=== PATIENT | female | born 1995 | race Asian ===

== ENCOUNTER 2017-05-19 10:20 | Emergency (ER) | payer OTHER ==
[2017-05-19 10:28] VITALS: BP 117/60; PULSE 94; TEMP 98.7; BMI 28.3
--- NOTE | 2017-05-19 10:47 | PDOC ---
History of Present Illness - General Chief Complaint: Cold Symptoms Stated Complaint: COUGH Time Seen by Provider: 05/19/17 10:42 History Source: Patient Exam Limitations: No Limitations - History of Present Illness Initial Comments: 05/19/17 11:30 Mother here with small child who is ill with an upper respiratory infection. States child became sick and she became ill yesterday. Denies fever, purulent drainage from nose, has a moist cough, has used Tylenol for fever and pain relief. Timing/Duration: reports: getting worse, yesterday Severity: reports: moderate Associated Symptoms: reports: denies symptoms, earache (congestion), fever/ chills, nasal congestion, nasal drainage. denies: cough, sore throat, wheezing Past History - Travel Traveled outside of the country in the last 30 days: No Close contact w/someone who was outside of country & ill: No - Past Medical History Allergies/Adverse Reactions: Allergies Allergy/AdvReac Type Severity Reaction Status Date / Time No Known Allergies Allergy Verified 05/19/17 10:28 Home Medications: Ambulatory Orders NK [No Known Home Medication] 05/19/17 COPD: No - Suicide/Smoking/Psychosocial Hx Smoking History: Never smoked Information on smoking cessation initiated: No Hx Alcohol Use: No Drug/Substance Use Hx: No Substance Use Type: None Review of Systems - Review of Systems Able to Perform ROS?: Yes Is the patient limited Telugu proficient: Yes Constitutional: Yes: Symptoms Reported, See HPI, Chills, Malaise. No: Fever HEENTM: Yes: Symptoms Reported, See HPI, Nose Congestion Respiratory: Yes: Symptoms reported, See HPI, Cough. No: Wheezing ABD/GI: No: Symptoms Reported All Other Systems: Reviewed and Negative *Physical Exam - Vital Signs Last Vital Signs Temp Pulse Resp BP Pulse Ox 98.7 F 94 H 18 117/60 100 05/19/17 10:26 05/19/17 10:26 05/19/17 10:26 05/19/17 10:05/19/17 10:26 - Physical Exam General Appearance: Yes: Nourished, Appropriately Dressed HEENT: positive: TMs Normal (congested but landmarks easily visualized), Pharynx Normal, Nasal Congestion, Rhinorrhea Neck: positive: Supple. negative: Lymphadenopathy (R), Lymphadenopathy (L) Respiratory/Chest: positive: Lungs Clear, Normal Breath Sounds Gastrointestinal/Abdominal: positive: Soft. negative: Tender Extremity: positive: Normal Inspection, Normal Range of Motion. negative: Normal Capillary Refill Integumentary: positive: Dry, Warm, Pale Neurologic: positive: mining helper II-XII NML intact, Fully Oriented, Alert, Normal Mood/ Affect, Normal Response, Motor Strength 5/5 Progress Note - Progress Note Progress Note: Upper respiratory infection, probable common cold. We'll treat conservatively *DC/Admit/Observation/Transfer Diagnosis at time of Disposition: Common cold virus - Discharge Dispostion Disposition: HOME Condition at time of disposition: Stable Admit: No - Referrals Referrals: ON STAFF,NOT [Primary Care Provider] - - Patient Instructions Printed Discharge Instructions: DI for Common Cold Additional Instructions: Rest, drink lots of fluids: Teas, water, soups, Pedialyte Saltwater gargles Steamy showers/seem to face break up mucus Avoid contact with others until fevers and cough resolved Lots of handwashing and good hygiene Continue [id number] medications for symptomatic relief Tylenol or Motrin for fever and pain Followup with private physician in one to 2 days as needed Return to emergency department for worsened symptoms, fevers, dehydration - Post Discharge Activity
== END 2017-05-19 11:33 | disposition home or self-care (01) ==
LOC: JERFT 10:20
DX: J00 Acute nasopharyngitis [common cold] (principal); B97.89 Other viral agents as the cause of diseases classified elsewhere
CPT/HCPCS: 99281-25